=== PATIENT | male | born 1965 | race African-American/Black ===

== ENCOUNTER 2017-10-11 12:46 | Emergency (ER) | payer MEDICARE, MEDICAID ==
[2017-10-11 12:54] VITALS: BP 142/98
[2017-10-11] MEDS ORDERED: DEXAMETHASONE SOD PHOS INJ 10 MG/1 ML VIAL IM ONE (13:02)
--- NOTE | 2017-10-11 13:07 | ER Document Report ---
HPI - HPI Pain Level: 4 Notes: Patient is a 52-year-old male with a history of mental health disorders who presents to the ED complaining of nasal congestion/discharge, postnasal drip, dry nonproductive cough, body aches 2-3 days. Patient states that he is still eating and drinking without difficulties, but does have a decreased p.o. intake. He is still urinating normally having normal bowel movements. Patient has not been using [id number] meds for symptoms. He denies any significant past medical history including cardiopulmonary history and immunocompromised conditions aside from occ asthma otherwise. Patient denies any IV drug use. Denies any headache, neck pain, sore throat, chest pain, palpitations, syncope, shortness of breath, wheeze, dyspnea, abdominal pain, nausea/vomiting/diarrhea, urinary retention, dysuria, hematuria, or rash. - ROS Systems Reviewed and Negative: Yes All other systems reviewed and negative Past Medical History - Social History Smoking Status: Unknown if Ever Smoked Family History: Arthritis, DM, Hyperlipidemia, Hypertension, Thyroid Disfunction - Past Medical History Cardiac Medical History: Reports: Hx Hypercholesterolemia, Hx Hypertension Pulmonary Medical History: Reports: Hx Asthma, Hx Bronchitis Neurological Medical History: Reports: Hx Seizures - childhood GI Medical History: Reports: Hx Gastroesophageal Reflux Disease Musculoskeltal Medical History: Reports Hx Arthritis Psychiatric Medical History: Reports: Hx Anxiety, Hx Attention Deficit Hyperactivity Disorder, Hx Bipolar Disorder, Hx Depression, Hx Schizophrenia Past Surgical History: Reports: Hx Inguinal Hernia - Immunizations Hx Diphtheria, Pertussis, Tetanus Vaccination: No Vertical Provider Document - CONSTITUTIONAL Agree With Documented VS: Yes Notes: PHYSICAL EXAMINATION: GENERAL: Well-appearing, well-nourished and in no acute distress. A&Ox4. Answers questions appropriately. Moves comfortably w/o notable distress HEAD: Atraumatic, normocephalic. EYES: Pupils equal round and reactive to light, extraocular movements intact, sclera anicteric, conjunctiva are normal. ENT: EAC clear b/l. TM's intact b/l without erythema, fluid, or perforation. Nares patent and with clear discharge. oropharynx no erythema without exudates. No tonsilar hypertrophy without erythema or exudate. No palatine shift. Uvula midline. No tongue protrusion. No drooling, hoarseness, or airway compromise. Moist mucous membranes. No sinus tenderness. NECK: Normal range of motion, supple without lymphadenopathy. No rigidity/ meningismus. LUNGS: Breath sounds clear to auscultation bilaterally and equal. No wheezes rales or rhonchi. No retractions HEART: Regular rate and rhythm without murmurs, rubs, gallops. ABDOMEN: Soft, nontender, nondistended abdomen. No guarding, no rebound. Normal bowel sounds present. No CVA tenderness bilaterally. NEUROLOGICAL: Normal speech, normal gait. Normal sensory, motor exams PSYCH: Normal mood, normal affect. SKIN: Warm, Dry, normal turgor, no rashes or lesions noted. - INFECTION CONTROL TRAVEL OUTSIDE OF THE [place] IN LAST 30 DAYS: No Course - Re-evaluation Re-evalutation: 10/11/17 13:05 Patient is an afebrile, well-hydrated, 52-year-old male who presents to the ED with acute URI, suspect viral. Vitals are acceptable. PE is otherwise unremarkable. No labs or imaging warranted at this time based on H&P. Patient has no significant cardiopulmonary or immunocompromised medical conditions aside from occ asthma. Patient's lungs are clear to auscultation bilaterally without tachycardia, hypoxia, or tachypnea. Patient is tolerating p.o. without any difficulties. Thoroughly reviewed the risks, benefits, potential side effects, estimated cost without insurance with patient. Low suspicion for any meningitis, sepsis, peritonsillar/pharyngeal abscess, respiratory compromise, severe dehydration, or other emergent systemic condition at this time. Patient is aware this condition can change from initial presentation and he needs to monitor symptoms closely. Decadron IM today. Rx for tessalon. Conservative measures otherwise for symptoms. Recheck with your PCM in 3-5 days. Return to the ED with any worsening/concerning symptoms otherwise as reviewed in discharge. Patient is in agreement. - Vital Signs Vital signs: Temp Pulse Resp BP Pulse Ox 98.7 F 63 18 142/98 H 98 10/11/17 12:53 10/11/17 12:53 10/11/17 12:53 10/11/17 12:53 10/11/17 12:53 Discharge - Discharge Clinical Impression: Acute URI Condition: Stable Disposition: HOME, SELF-CARE Instructions: Upper Respiratory Illness ([facility]) Additional Instructions: Maintain adequate fluid intake Take meds as directed tylenol/ibuprofen as needed over the counter cold medication as needed for symptoms Humidified air may help Wash your hands regularly Wear a mask when coughing F/u: with your PCM in 3-5 days for a recheck Return to the ED with any fever, worsening pain, chest pain, palpitations, syncope, worsening GRANT, neck pain/stiffness, shortness of breath, wheezing, drooling, trouble swallowing/breathing, abdominal pain, n/v/d, rash, or worsening/concerning symptoms otherwise. Prescriptions: Benzonatate [Tessalon Perle 100 mg Capsule] 100 mg PO Q8HP PRN #15 cap PRN Reason: Albuterol Sulfate [Proair HFA Inhalation Aerosol 8.5 gm MDI] 2 puff IH Q4H PRN # 1 mdi PRN Reason: Forms: Elevated Blood Pressure Referrals: GILMA MILLER MD [Primary Care Provider] - Follow up in 3-5 days
== END 2017-10-11 13:14 | disposition home or self-care (01) ==
LOC: ER 12:46
DX: J06.9 Acute upper respiratory infection, unspecified (principal); R09.81 Nasal congestion; R09.82 Postnasal drip; R05 Cough; R52 Pain, unspecified; J45.909 Unspecified asthma, uncomplicated; I10 Essential (primary) hypertension
CPT/HCPCS: 99283; 96372; J1100

== ENCOUNTER 2017-12-30 16:12 | Emergency (ER) | payer MEDICARE, MEDICAID ==
--- NOTE | 2017-12-30 17:58 | ER Document Report ---
ED Medical Screen (RME) - General Chief Complaint: Chest Pain Stated Complaint: CHEST PAIN, BODY ACHE Time Seen by Provider: 12/30/17 17:56 Notes: Patient says he is having some chest pains this morning. He does not have a history of any heart disease. Patient is located in the center of the chest and slightly to the left of the sternum. It is worsened with movement or deep breaths, but nothing makes it better. Had similar chest pains a couple of months ago and came here and had it checked out and was fine to be discharged home. He has not had any difficulty breathing or shortness of breath. No nausea or vomiting. No fevers. Has a history of hypertension. Is on a blood thinner but does not know what it is. Does take baby aspirin daily. TRAVEL OUTSIDE OF THE [place] IN LAST 30 DAYS: No - Related Data Allergies/Adverse Reactions: No Known Allergies Allergy (Verified 12/30/17 16:16) Past Medical History - Social History Chew tobacco use (# tins/day): No Frequency of alcohol use: None Drug Abuse: None - Past Medical History Cardiac Medical History: Reports: Hx Hypercholesterolemia, Hx Hypertension Pulmonary Medical History: Reports: Hx Asthma, Hx Bronchitis Neurological Medical History: Reports: Hx Seizures - childhood Renal/ Medical History: Denies: Hx Peritoneal Dialysis GI Medical History: Reports: Hx Gastroesophageal Reflux Disease Musculoskeltal Medical History: Reports Hx Arthritis Psychiatric Medical History: Reports: Hx Anxiety, Hx Attention Deficit Hyperactivity Disorder, Hx Bipolar Disorder, Hx Depression, Hx Schizophrenia Past Surgical History: Reports: Hx Inguinal Hernia - Immunizations Hx Diphtheria, Pertussis, Tetanus Vaccination: No Physical Exam - Vital signs Vitals: Temp Pulse Resp BP Pulse Ox 98.0 F 61 20 126/67 H 98 12/30/17 16:28 12/30/17 16:28 12/30/17 16:28 12/30/17 16:28 12/30/17 16:28 Course - Vital Signs Vital signs: Temp Pulse Resp BP Pulse Ox 98.0 F 61 18 126/67 H 98 12/30/17 16:28 12/30/17 16:28 12/30/17 17:46 12/30/17 16:28 12/30/17 16:28 Doctor's Discharge - Discharge Referrals: GILMA MILLER MD [Primary Care Provider] - Follow up as needed
--- NOTE | 2017-12-30 18:40 | EKG REPORT ---
SEVERITY:- NORMAL ECG - SINUS RHYTHM : Confirmed by: Vaibhav Somers MD 30-Dec-2017 18:40:12
--- NOTE | 2017-12-30 18:44 | RADIOLOGY REPORT (SQ) ---
EXAM DESCRIPTION: CHEST 2 VIEWS COMPLETED DATE/TIME: 12/30/2017 6:36 pm REASON FOR STUDY: Chest pain COMPARISON: 06/07/2017 EXAM PARAMETERS: NUMBER OF VIEWS: two views TECHNIQUE: Digital Frontal and Lateral radiographic views of the chest acquired. RADIATION DOSE: NA LIMITATIONS: none FINDINGS: LUNGS AND PLEURA: No opacities, masses or pneumothorax. No pleural effusion. MEDIASTINUM AND HILAR STRUCTURES: No masses or contour abnormalities. HEART AND VASCULAR STRUCTURES: Heart normal size. No evidence for failure. BONES: No acute findings. HARDWARE: None in the chest. OTHER: No other significant finding. IMPRESSION: NO ACUTE RADIOGRAPHIC FINDING IN THE CHEST. TECHNICAL DOCUMENTATION: JOB ID: [id number] [employer]- All Rights Reserved Reading location - IP/workstation name: [email or web address]
[2017-12-30 18:50] LABS: ABSOLUTE EOSINOPHILS # (AUTO) 0.3 10^3/uL (0.0-0.6); ABSOLUTE LYMPHOCYTES (AUTO) 1.2 10^3/uL (0.5-4.7); ABSOLUTE MONOCYTES (AUTO) 0.3 10^3/uL (0.1-1.4); ABSOLUTE NEUT (AUTO) 2.4 10^3/uL (1.7-8.2); BASOPHILS % (AUTO) 0.6 % (0-2); EOSINOPHILS % (AUTO) 7.7 % (0-6); LYMPHOCYTES % (AUTO) 28.1 % (13-45); MEAN CORPUSCULAR HEMOGLOBIN 29.4 pg (27.0-33.4); MEAN CORPUSCULAR HGB CONC 33.3 g/dL (32.0-36.0); MEAN CORPUSCULAR VOLUME 88 fl (80-97); PLATELET COUNT 224 10^3/uL (150-450); RED BLOOD COUNT 4.75 10^6/uL (4.35-5.55); RED CELL DISTRIBUTION WIDTH 13.6 % (11.5-14.0); SEGMENTED NEUTROPHILS % (AUTO) 55.6 % (42-78); TOTAL CELLS COUNTED % (AUTO) 100 %; WHITE BLOOD COUNT 4.3 10^3/uL (4.0-10.5)
[2017-12-30 19:12] LABS: ALANINE AMINOTRANSFERASE 20 U/L (21-72); ALBUMIN 4.3 g/dL (3.5-5.0); ALKALINE PHOSPHATASE 81 U/L (38-126); ANION GAP 9 (5-19); ASPARTATE AMINO TRANSFERASE 21 U/L (17-59); BILIRUBIN,DIRECT 0.2 mg/dL (0.0-0.4); BILIRUBIN,TOTAL 0.6 mg/dL (0.2-1.3); BLOOD UREA NITROGEN 20 mg/dL (7-20); CALCIUM 9.6 mg/dL (8.4-10.2); CARBON DIOXIDE 32 mmol/L (22-30); CHLORIDE 102 mmol/L (98-107); CREATINE KINASE 152 U/L (55-170); GLUCOSE 115 mg/dL (75-110); POTASSIUM 4.1 mmol/L (3.6-5.0); SODIUM 142.5 mmol/L (137-145); TOTAL PROTEIN 7.8 g/dL (6.3-8.2)
[2017-12-30 19:24] LABS: CREATINE KINASE MB 1.33 ng/mL (<4.55)
[2017-12-30 19:27] LABS: TROPONIN I < 0.012 ng/mL
--- NOTE | 2017-12-30 21:42 | ER Document Report ---
ED General - General Chief Complaint: Chest Pain Stated Complaint: CHEST PAIN, BODY ACHE Time Seen by Provider: 12/30/17 17:56 Notes: Patient is a 52-year-old male without chronic medical problems who presents with complaints of intermittent chest pain since waking up this morning. He describes this as an intermittent retrosternal, right-sided chest discomfort that is an aching, stabbing pain. He describes moving and taking a deep breath or palpating the areas worsening the pain. He has not tried anything to improve the pain. He has a history of similar pain in the past that was diagnosed as muscle pain. He denies any shortness of breath, diaphoresis, nausea or vomiting. He denies any cardiac history, history of DVT or pulmonary embolus. He has not seen his primary doctor regarding today's concerns. He states he had a stress test approximately 1-2 years ago that was noted to be normal. He denies any current chest pain, currently asymptomatic TRAVEL OUTSIDE OF THE [place] IN LAST 30 DAYS: No - Related Data Allergies/Adverse Reactions: No Known Allergies Allergy (Verified 12/30/17 16:16) Past Medical History - General Information source: Patient - Social History Smoking Status: Former Smoker Chew tobacco use (# tins/day): No Frequency of alcohol use: None Drug Abuse: None Family History: Arthritis, DM, Hyperlipidemia, Hypertension, Thyroid Disfunction Patient has suicidal ideation: No Patient has homicidal ideation: No - Past Medical History Cardiac Medical History: Reports: Hx Hypercholesterolemia, Hx Hypertension Pulmonary Medical History: Reports: Hx Asthma, Hx Bronchitis Neurological Medical History: Reports: Hx Seizures - childhood Renal/ Medical History: Denies: Hx Peritoneal Dialysis GI Medical History: Reports: Hx Gastroesophageal Reflux Disease Musculoskeletal Medical History: Reports Hx Arthritis Psychiatric Medical History: Reports: Hx Anxiety, Hx Attention Deficit Hyperactivity Disorder, Hx Bipolar Disorder, Hx Depression, Hx Schizophrenia Past Surgical History: Reports: Hx Inguinal Hernia - Immunizations Hx Diphtheria, Pertussis, Tetanus Vaccination: No Review of Systems - Review of Systems Notes: Constitutional: Negative for fever. HENT: Negative for sore throat. Eyes: Negative for visual changes. Cardiovascular: Positive for chest pain. Respiratory: Negative for shortness of breath. Gastrointestinal: Negative for abdominal pain, vomiting or diarrhea. Genitourinary: Negative for dysuria. Musculoskeletal: Negative for back pain. Skin: Negative for rash. Neurological: Negative for headaches, weakness or numbness. 10 point ROS negative except as marked above and in HPI. Physical Exam - Vital signs Vitals: Temp Pulse Resp BP Pulse Ox 98.0 F 61 20 126/67 H 98 12/30/17 16:28 12/30/17 16:28 12/30/17 16:28 12/30/17 16:28 12/30/17 16:28 Interpretation: Normal Notes: PHYSICAL EXAMINATION: GENERAL: Well-appearing, well-nourished and in no acute distress. HEAD: Atraumatic, normocephalic. EYES: Pupils equal round and reactive to light, extraocular movements intact, sclera anicteric, conjunctiva are normal. ENT: nares patent, oropharynx clear without exudates. Moist mucous membranes. NECK: Normal range of motion, supple without lymphadenopathy LUNGS: Breath sounds clear to auscultation bilaterally and equal. No wheezes rales or rhonchi. HEART: Regular rate and rhythm without murmurs ABDOMEN: Soft, nontender, normoactive bowel sounds. No guarding, no rebound. No masses appreciated. EXTREMITIES: Normal range of motion, no pitting or edema. No cyanosis. NEUROLOGICAL: No focal neurological deficits. Moves all extremities spontaneously and on command. PSYCH: Normal mood, normal affect. SKIN: Warm, Dry, normal turgor, no rashes or lesions noted. Course - Re-evaluation Re-evalutation: 12/30/17 21:40 Presentation of chest pain in an otherwise well appearing patient. Low clinical suspicion for ACS given clinical history, exam, EKG without ST elevations or depressions, and negative initial troponin. HEART score less than or equal to 3. PE also seems unlikely given clinical history, absence of tachycardia or dyspnea. Wells score is 0. CXR without evidence of pneumothorax or pneumonia. No widened mediastinum. Aortic dissection also seems unlikely given history, symmetric pulses, CXR, and vitals. A delta troponin remains normal. Patient does have reproduction of pain on palpation of his right and peristernal chest wall and notes that this is where he had the pain previously that he currently denies. Overall assessment: Chest pain in a patient without evidence of cardiac or other serious etiology on workup today. I discussed with patient that, based on their age, risk factors and emergency department testing today, the likelihood that their symptoms are related to a heart attack is very low (estimated risk of heart attack or over the next 30 days of less than 1%). The patient demonstrates decision making capacity and has verbalized an understanding of these risks to me. Based on this, the patient has chosen to follow-up as an outpatient. Usual chest pain return precautions reviewed. The patient states understanding and agreement with this plan. 12/30/17 21:41 - Vital Signs Vital signs: Temp Pulse Resp BP Pulse Ox 97.6 F 61 16 145/91 H 100 12/30/17 22:54 12/30/17 16:28 12/30/17 22:46 12/30/17 22:01 12/30/17 22:46 - Laboratory Result Diagrams: 12/30/17 18:25 12/30/17 18:25 Laboratory results interpreted by me: 12/30/17 12/30/17 18:25 18:25 Eosinophils % 7.7 H Carbon Dioxide 32 H Creatinine 1.42 H Est GFR (Non-Af Amer) 52 L Glucose 115 H ALT 20 L - Diagnostic Test Radiology reviewed: Image reviewed, Reports reviewed Radiology results interpreted by me: 12/30/17 21:41 Chest x-ray: No acute infiltrate or pneumothorax - EKG Interpretation by Me Additional EKG results interpreted by me: 12/30/17 21:41 Sinus rhythm. Rate 70. No ST elevations or depressions. QTC is 419. Discharge - Discharge Clinical Impression: Chest pain Qualifiers: Chest pain type: unspecified Qualified Code(s): R07.9 - Chest pain, unspecified Condition: Good Disposition: HOME, SELF-CARE Additional Instructions: You were seen today for chest pain. The exact cause of your pain is unclear. However, based on your cardiac enzyme testing, chest x-ray, and EKG it does not appear that it is from an immediately life-threatening cause at this time. Although your testing here is normal is critical that you follow-up with your primary care physician for continued evaluation of this chest pain and possible stress testing. I recommended you see your physician within the next 24-48 hours to be evaluated for consideration of a stress test. Please return to emergency department immediately if you have worsening of your chest pain, shortness of breath, vomiting, become unable to exert yourself due to pain or difficulty breathing, you pass out, or have any pain that radiates into your arms, jaw, or back. Please also return if you have any additional symptoms that are concerning to you. Forms: Parent Work Note Referrals: GILMA MILLER MD [Primary Care Provider] - Follow up in 3-5 days
[2017-12-30 22:47] VITALS: BP 145/91
== END 2017-12-30 22:55 | disposition home or self-care (01) ==
LOC: ER 16:12
DX: R07.9 Chest pain, unspecified (principal); I10 Essential (primary) hypertension; J45.909 Unspecified asthma, uncomplicated; Z87.891 Personal history of nicotine dependence
CPT/HCPCS: 36415; 71046; 80053; 82550; 82553; 84484; 85025; 93005; 93010; 99285

== ENCOUNTER 2018-02-03 12:48 | Emergency (ER) | payer MEDICARE, MEDICAID ==
[2018-02-03 12:59] VITALS: BP 138/78
[2018-02-03] MEDS ORDERED: SULFAMETHOXAZOLE/TRIMETHOPRIM 800-160 MG TABLET PO ONE (13:10)
--- NOTE | 2018-02-03 13:10 | ER Document Report ---
ED General - General Mode of Arrival: Ambulatory Information source: Patient TRAVEL OUTSIDE OF THE [place] IN LAST 30 DAYS: No - General Chief Complaint: Lip Swelling Stated Complaint: SWOLLEN LIP Time Seen by Provider: 02/03/18 13:04 Notes: Patient is a 52 year old male presenting to the emergency department complaining of lip swelling onset this morning. Patient states he woke up this morning and noticed the left side of his lip swelling and lip pain. Patient states he believes he was bitten by a spider. Patient denies tongue swelling, difficulty swallowing, trouble breathing or a history of angioedema. Patient is currently on Coumadin. (KRISTY,TAMAYA) - Related Data Allergies/Adverse Reactions: No Known Allergies Allergy (Verified 02/03/18 12:59) Past Medical History - General Information source: Patient - Social History Smoking Status: Current Some Day Smoker Cigarette use (# per day): No - occasional cigar Family History: Arthritis, DM, Hyperlipidemia, Hypertension, Thyroid Disfunction - Past Medical History Cardiac Medical History: Reports: Hx Hypercholesterolemia, Hx Hypertension Pulmonary Medical History: Reports: Hx Asthma, Hx Bronchitis Neurological Medical History: Reports: Hx Seizures - childhood GI Medical History: Reports: Hx Gastroesophageal Reflux Disease Musculoskeletal Medical History: Reports Hx Arthritis Psychiatric Medical History: Reports: Hx Anxiety, Hx Attention Deficit Hyperactivity Disorder, Hx Bipolar Disorder, Hx Depression, Hx Schizophrenia Past Surgical History: Reports: Hx Inguinal Hernia - Immunizations Hx Diphtheria, Pertussis, Tetanus Vaccination: No Review of Systems - Review of Systems Constitutional: No symptoms reported EENT: No symptoms reported Cardiovascular: No symptoms reported Respiratory: No symptoms reported Gastrointestinal: No symptoms reported Genitourinary: No symptoms reported Male Genitourinary: No symptoms reported Musculoskeletal: See HPI Skin: No symptoms reported Hematologic/Lymphatic: No symptoms reported Neurological/Psychological: No symptoms reported -: Yes All other systems reviewed and negative Physical Exam - Vital signs Vitals: Temp Pulse BP Pulse Ox 98.6 F 63 138/78 H 98 02/03/18 12:57 02/03/18 12:57 02/03/18 12:57 02/03/18 12:57 - Notes Notes: GENERAL: Alert, interacts well. No acute distress. HEAD: Normocephalic, atraumatic. EYES: Pupils equal, round, and reactive to light. Extraocular movements intact. ENT: Oral mucosa moist, tongue midline. NECK: Full range of motion. Supple. Trachea midline. LUNGS: No respiratory distress. EXTREMITIES: Moves all 4 extremities spontaneously. No edema, radial and dorsalis pedis pulses 2/4 bilaterally. No cyanosis. NEUROLOGICAL: Alert and oriented x3. Normal speech. PSYCH: Normal affect, normal mood. SKIN: Warm, dry, normal turgor. Swelling to the left side of upper lip with a pustule around a piece of hair, no fluctuance. (KAITLYN WAGNER) - Re-evaluation Re-evalutation: 02/03/18 13:13 Consistent with folliculitis, no evidence of deeper abscess, no evidence of angioedema. Patient will be started on Bactrim and warm compresses and discharged to home. (PATRICK VASQUEZ) - Vital Signs Vital signs: Temp Pulse Resp BP Pulse Ox 98.6 F 63 138/78 H 98 02/03/18 12:57 02/03/18 12:57 02/03/18 12:57 02/03/18 12:57 Discharge - Discharge Clinical Impression: Folliculitis barbae traumatica Condition: Stable Disposition: HOME, SELF-CARE Additional Instructions: Folliculitis You have a skin infection called folliculitis. This occurs when bacteria infect the hair follicles of the skin. Typically, redness and small pustules are found where hair shafts enter the skin. Allergy, surface irritation, shaving, and exposure to hot tubs predispose to folliculitis. We will treat this with an oral antibiotic. It should help to decrease the swelling and cure the infection. The antibiotic that we are using it can sometimes interfere with your blood thinning medication, so please make sure you have your blood thinner level checked within 1 week of starting this medication. Warm compresses are often used. Please clean your razor thoroughly to prevent future infections. If you develop increasing pain, swelling, fever, or red streaks, call the doctor or return for re-evaluation. Prescriptions: Sulfamethoxazole/Trimethoprim [Bactrim Ds Tablet] 1 each PO BID #14 tablet Referrals: GILMA MILLER MD [Primary Care Provider] - Follow up in 1 week Scribe Attestation: 02/03/18 15:04 I personally performed the services described in the documentation, reviewed and edited the documentation which was dictated to the scribe in my presence, and it accurately records my words and actions. (PATRICK VASQUEZ) Scribe Documentation - Scribe Written by Jessica:: Jessica Malone, 02/03/2018 13:31 acting as scribe for :: Lexi
== END 2018-02-03 13:23 | disposition home or self-care (01) ==
LOC: ER 12:48
DX: L73.8 Other specified follicular disorders (principal); R22.0 Localized swelling, mass and lump, head; F17.200 Nicotine dependence, unspecified, uncomplicated; I10 Essential (primary) hypertension; J45.909 Unspecified asthma, uncomplicated
CPT/HCPCS: 99283; A9270

== ENCOUNTER 2018-02-23 11:49 | Emergency (ER) | payer MEDICARE, MEDICAID ==
[2018-02-23 12:13] VITALS: BP 156/100
[2018-02-23] MEDS ORDERED: ACETAMINOPHEN 325 MG TABLET PO ONE (13:05)
--- NOTE | 2018-02-23 14:31 | ER Document Report ---
HPI - HPI Patient complains to provider of: Sore throat Onset: Other - 2 days Onset/Duration: Persistent Quality of pain: Achy Pain Level: 2 Context: She presents complaining of sore throat for the past 2 days. Patient does report sick contacts in the household. Patient denies any fever. Patient denies difficulty swallowing or eating. Associated Symptoms: Sore throat. denies: Body/muscle aches, Nonproductive cough, Productive cough, Earache, Fever Exacerbated by: Denies Relieved by: Denies Similar symptoms previously: Yes Recently seen / treated by doctor: No - ROS ROS below otherwise negative: Yes Systems Reviewed and Negative: Yes All other systems reviewed and negative - CONSTITUTIONAL Constitutional: DENIES: Fever, Chills - EENT EENT: REPORTS: Sore Throat. DENIES: Ear Pain - NEURO Neurology: DENIES: Headache - RESPIRATORY Respiratory: DENIES: Coughing - GASTROINTESTINAL Gastrointestinal: DENIES: Nausea, Patient vomiting - MUSCULOSKELETAL Musculoskeletal: DENIES: Neck Pain - DERM Skin Color: Normal Skin Problems: None Past Medical History - General Information source: Patient - Social History Smoking Status: Never Smoker Chew tobacco use (# tins/day): No Frequency of alcohol use: None Drug Abuse: None Occupation: None Lives with: Family Family History: Arthritis, DM, Hyperlipidemia, Hypertension, Thyroid Disfunction Patient has suicidal ideation: No Patient has homicidal ideation: No - Past Medical History Cardiac Medical History: Reports: Hx Hypercholesterolemia, Hx Hypertension Pulmonary Medical History: Reports: Hx Asthma, Hx Bronchitis Neurological Medical History: Reports: Hx Seizures - childhood Renal/ Medical History: Denies: Hx Peritoneal Dialysis GI Medical History: Reports: Hx Gastroesophageal Reflux Disease Musculoskeletal Medical History: Reports Hx Arthritis Psychiatric Medical History: Reports: Hx Anxiety, Hx Attention Deficit Hyperactivity Disorder, Hx Bipolar Disorder, Hx Depression, Hx Schizophrenia Past Surgical History: Reports: Hx Inguinal Hernia - Immunizations Hx Diphtheria, Pertussis, Tetanus Vaccination: No Vertical Provider Document - CONSTITUTIONAL Agree With Documented VS: Yes Exam Limitations: No Limitations General Appearance: WD/WN, No Apparent Distress - INFECTION CONTROL TRAVEL OUTSIDE OF THE [place] IN LAST 30 DAYS: No - HEENT HEENT: Atraumatic, Normocephalic, Pharyngeal Tenderness, Pharyngeal Erythema. negative: Pharyngeal Exudate, Tympanic Membrane Red, Tympanic Membrane Bulging - NECK Neck: Normal Inspection, Supple. negative: Lymphadenopathy-Left, Lymphadenopathy-Right - RESPIRATORY Respiratory: Breath Sounds Normal, No Respiratory Distress - CARDIOVASCULAR Cardiovascular: Regular Rate, Regular Rhythm, No Murmur - MUSCULOSKELETAL/EXTREMETIES Musculoskeletal/Extremeties: MAEW - NEURO Level of Consciousness: Awake, Alert, Appropriate Motor/Sensory: No Motor Deficit - DERM Integumentary: Warm, Dry, No Rash Course - Re-evaluation Re-evalutation: 02/23/18 14:29 With negative rapid strep test. No concern for [employer]. Patient able to manage oral secretions. No difficulty breathing or swallowing. No potential airway compromise. Throat culture is pending at this time. - Vital Signs Vital signs: Temp Pulse Resp BP Pulse Ox 97.9 F 55 L 18 156/100 H 100 02/23/18 12:12 02/23/18 12:12 02/23/18 12:12 02/23/18 12:12 02/23/18 12:12 - Laboratory Laboratory results interpreted by me: 02/23/18 14:29 Labs- Entire Visit 02/23/18 12:05 Group A Strep Rapid NEGATIVE Discharge - Discharge Clinical Impression: Sore throat Condition: Stable Disposition: HOME, SELF-CARE Instructions: Sore Throat (OM) Additional Instructions: Return immediately for any new or worsening symptoms Followup with your primary care provider, call tomorrow to make a followup appointment Throat culture is pending, we will call if you need any different treatment Prescriptions: Naproxen [Naprosyn 250 Nmg Tablet] 1 tab PO BID #14 tablet Referrals: GILMA MILLER MD [Primary Care Provider] - Follow up tomorrow
== END 2018-02-23 14:36 | disposition home or self-care (01) ==
LOC: ER 11:49
DX: J02.9 Acute pharyngitis, unspecified (principal); I10 Essential (primary) hypertension; J45.909 Unspecified asthma, uncomplicated
CPT/HCPCS: 99283; 87070; 87880; 87077; A9270

== ENCOUNTER 2018-12-01 04:56 | Emergency (ER) | payer MEDICARE, MEDICAID ==
[2018-12-01] MEDS ORDERED: ONDANSETRON 4 MG TAB.RAPDIS PO ONE (05:11)
--- NOTE | 2018-12-01 05:13 | ER Document Report ---
HPI - HPI Time Seen by Provider: 12/01/18 05:02 Pain Level: 3 Context: Patient is a 53-year-old male that comes emergency department for chief complaint of feeling a bug crawl into his right ear. He states he can still feel it move around. He states he has some discomfort but no severe pain. He denies vomiting. He denies drainage or bleeding from the ear. He denies any other complaints. Past Medical History - General Information source: Patient - Social History Smoking Status: Never Smoker Lives with: Family Family History: Arthritis, DM, Hyperlipidemia, Hypertension, Thyroid Disfunction - Past Medical History Cardiac Medical History: Reports: Hx Hypercholesterolemia, Hx Hypertension Pulmonary Medical History: Reports: Hx Asthma, Hx Bronchitis Neurological Medical History: Reports: Hx Seizures - childhood Renal/ Medical History: Denies: Hx Peritoneal Dialysis GI Medical History: Reports: Hx Gastroesophageal Reflux Disease Musculoskeletal Medical History: Reports Hx Arthritis Psychiatric Medical History: Reports: Hx Anxiety, Hx Attention Deficit Hyperactivity Disorder, Hx Bipolar Disorder, Hx Depression, Hx Schizophrenia Past Surgical History: Reports: Hx Inguinal Hernia - Immunizations Hx Diphtheria, Pertussis, Tetanus Vaccination: No Vertical Provider Document - CONSTITUTIONAL General Appearance: WD/WN, Mild Distress - Patient is very agitated, holding his right ear - INFECTION CONTROL TRAVEL OUTSIDE OF THE [place] IN LAST 30 DAYS: No - HEENT HEENT: Atraumatic, Normocephalic. negative: Normal ENT Exam - There is clearly a beetle-like insect in the distal canal of the right ear near the eardrum, no discharge or bleeding, no tenderness over the tragus or mastoid, unremarkable otherwise. Normal ENT exam otherwise including oral pharyngeal exam and nasal exam. - NECK Neck: Normal Inspection - RESPIRATORY Respiratory: Breath Sounds Normal, No Respiratory Distress - CARDIOVASCULAR Cardiovascular: Regular Rate, Regular Rhythm - GI/ABDOMEN Gastrointestinal: Abdomen Soft, Abdomen Non-Tender - BACK Back: Normal Inspection - MUSCULOSKELETAL/EXTREMETIES Musculoskeletal/Extremeties: MAEW, FROM, Non-Tender - NEURO Level of Consciousness: Awake, Alert, Appropriate Motor/Sensory: No Motor Deficit, No Sensory Deficit - DERM Integumentary: Warm, Dry, No Rash Course - Re-evaluation Re-evalutation: In order to kill the insect I placed a capful of isopropyl alcohol in the right ear, fortunately the living beetle insect immediately crawled out of the ear canal and was caught and squished between gauze. Ear was drained, reexamined, shows no concerning findings. Patient states gratefulness. Blood pressure is elevated, patient is due for his blood pressure medication, no complaints otherwise. - Vital Signs Vital signs: Temp Pulse Resp BP Pulse Ox 98.3 F 72 18 12/01/18 05:03 12/01/18 05:03 12/01/18 05:03 Discharge - Discharge Clinical Impression: Foreign body in ear Qualifiers: Encounter type: initial encounter Laterality: right Qualified Code(s): T16.1XXA - Foreign body in right ear, initial encounter Condition: Stable Disposition: HOME, SELF-CARE Additional Instructions: The insect was removed and there is no concerning finding noted on the physical exam of your ear now. Follow-up with primary care. Return for any concerning symptoms or something is not right. Referrals: GILMA MILLER MD [Primary Care Provider] - Follow up as needed
[2018-12-01 05:30] VITALS: BP 174/105
== END 2018-12-01 05:27 | disposition home or self-care (01) ==
LOC: ER 04:56
DX: T16.1XXA Foreign body in right ear, initial encounter (principal); H92.01 Otalgia, right ear; I10 Essential (primary) hypertension; J45.909 Unspecified asthma, uncomplicated
CPT/HCPCS: 99283; A9270; S0119

== ENCOUNTER 2018-12-28 14:40 | Emergency (ER) | payer MEDICARE, MEDICAID ==
[2018-12-28] MEDS ORDERED: DIPH/PERTUSS(ACELL)/TETANUS VAC/PF 0.5 ML SYR (>=10YO) IM ONE (15:17)
[2018-12-28] MEDS ORDERED: ACETAMINOPHEN 325 MG TABLET PO ONE (15:17)
--- NOTE | 2018-12-28 15:18 | ER Document Report ---
ED Medical Screen (RME) - General Chief Complaint: Laceration Stated Complaint: RIGHT FINGER PAIN Time Seen by Provider: 12/28/18 15:14 Primary Care Provider: GILMA MILLER MD [Primary Care Provider] - Follow up as needed Mode of Arrival: Ambulatory Information source: Patient Notes: 53-year-old male presented to ED for injury to his right index finger. He stat es he was working on the car took the wheels off was put in the back on when he smashed his finger in the wheel. He states his tetanus is not up-to-date and he would like some Tylenol is not had anything since he injured his finger. Medical history is asthma blood pressure cholesterol migraines IBS he has had a colonoscopy and a right inguinal hernia repair. He states he does not drink smoke or use any drugs does not work and lives alone. Patient is alert oriented respirations regular and unlabored speaking in full sentences walks with even steady gait. I have greeted and performed a rapid initial assessment of this patient. A comprehensive ED assessment and evaluation of the patient, analysis of test results and completion of medical decision making process will be conducted by an additional ED providers. TRAVEL OUTSIDE OF THE [place] IN LAST 30 DAYS: No - Related Data Allergies/Adverse Reactions: No Known Allergies Allergy (Verified 12/28/18 14:42) Past Medical History - Past Medical History Cardiac Medical History: Reports: Hx Hypercholesterolemia, Hx Hypertension Pulmonary Medical History: Reports: Hx Asthma, Hx Bronchitis Neurological Medical History: Reports: Hx Seizures - childhood Renal/ Medical History: Denies: Hx Peritoneal Dialysis GI Medical History: Reports: Hx Gastroesophageal Reflux Disease Musculoskeltal Medical History: Reports Hx Arthritis Psychiatric Medical History: Reports: Hx Anxiety, Hx Attention Deficit Hyperactivity Disorder, Hx Bipolar Disorder, Hx Depression, Hx Schizophrenia Past Surgical History: Reports: Hx Inguinal Hernia - Immunizations Hx Diphtheria, Pertussis, Tetanus Vaccination: No Physical Exam - Vital signs Vitals: Temp Pulse Resp BP Pulse Ox 98.3 F 61 15 176/94 H 98 12/28/18 14:48 12/28/18 14:48 12/28/18 14:48 12/28/18 14:48 12/28/18 14:48 Course - Vital Signs Vital signs: Temp Pulse Resp BP Pulse Ox 98.3 F 61 15 176/94 H 98 12/28/18 14:48 12/28/18 14:48 12/28/18 14:48 12/28/18 14:48 12/28/18 14:48 Doctor's Discharge - Discharge Referrals: GILMA MILLER MD [Primary Care Provider] - Follow up as needed
--- NOTE | 2018-12-28 15:46 | RADIOLOGY REPORT (SQ) ---
EXAM DESCRIPTION: FINGER RIGHT COMPLETED DATE/TIME: 12/28/2018 3:35 pm REASON FOR STUDY: smashed indexfinger COMPARISON: None. NUMBER OF VIEWS: Three views. TECHNIQUE: AP, lateral, and oblique images acquired of the right second finger. LIMITATIONS: None. FINDINGS: MINERALIZATION: Normal. BONES: No acute fracture or dislocation. No worrisome bone lesions. SOFT TISSUES: No soft tissue swelling. No foreign body. OTHER: No other significant finding. IMPRESSION: NO RADIOGRAPHIC EVIDENCE OF ACUTE INJURY. COMMENT: SITE OF TRAUMA/COMPLAINT MARKED/STAMP COMPLETED: YES. TECHNICAL DOCUMENTATION: JOB ID: [id number] [employer]- All Rights Reserved Reading location - IP/workstation name: [email or web address]
[2018-12-28] MEDS ORDERED: BUPIVACAINE HCL 0.75% INJ/PF (7.5 MG/1 ML) 10 ML SDV INJ ONE (16:28)
[2018-12-28] MEDS ORDERED: LIDOCAINE 1% INJ (10 MG/ML) 10 ML MDV INJ ONE (16:28)
--- NOTE | 2018-12-28 17:49 | ER Document Report ---
ED General - General Mode of Arrival: Ambulatory TRAVEL OUTSIDE OF THE [place] IN LAST 30 DAYS: No - General Chief Complaint: Laceration Stated Complaint: RIGHT FINGER PAIN Time Seen by Provider: 12/28/18 15:14 Primary Care Provider: GILMA MILLER MD [Primary Care Provider] - Follow up as needed Notes: 53-year-old [id number] male with history of asthma presents emergency department with an injury to his right index finger sustained yesterday at 8:30 PM when it got caught in a wheel well. Patient states that he smashed his finger and then wrapped it up but decided to seek care today. Patient states that he is able to move his finger and he is in significant pain. Patient's tetanus is not up-to-date. Patient states that it was still mildly bleeding today. Patient denies any other injury to his hand. (SON KOCH) - Related Data Allergies/Adverse Reactions: No Known Allergies Allergy (Verified 12/28/18 14:42) Past Medical History - General Information source: Patient - Social History Smoking Status: Never Smoker Frequency of alcohol use: None Drug Abuse: None Family History: Arthritis, DM, Hyperlipidemia, Hypertension, Thyroid Disfunction Patient has suicidal ideation: No Patient has homicidal ideation: No - Past Medical History Cardiac Medical History: Reports: Hx Hypercholesterolemia, Hx Hypertension Pulmonary Medical History: Reports: Hx Asthma, Hx Bronchitis Neurological Medical History: Reports: Hx Seizures - childhood Renal/ Medical History: Denies: Hx Peritoneal Dialysis GI Medical History: Reports: Hx Gastroesophageal Reflux Disease Musculoskeletal Medical History: Reports Hx Arthritis Psychiatric Medical History: Reports: Hx Anxiety, Hx Attention Deficit Hyperactivity Disorder, Hx Bipolar Disorder, Hx Depression, Hx Schizophrenia Past Surgical History: Reports: Hx Inguinal Hernia - Immunizations Hx Diphtheria, Pertussis, Tetanus Vaccination: No Review of Systems - Review of Systems Constitutional: See HPI EENT: No symptoms reported Cardiovascular: No symptoms reported Respiratory: No symptoms reported Gastrointestinal: No symptoms reported Genitourinary: No symptoms reported Male Genitourinary: No symptoms reported Musculoskeletal: See HPI Skin: See HPI Hematologic/Lymphatic: No symptoms reported Neurological/Psychological: No symptoms reported Physical Exam - Vital signs Vitals: Temp Pulse Resp BP Pulse Ox 98.3 F 61 15 176/94 H 98 12/28/18 14:48 12/28/18 14:48 12/28/18 14:48 12/28/18 14:48 12/28/18 14:48 - Notes Notes: PHYSICAL EXAMINATION: Reviewed vital signs and charting by RN GENERAL: Alert, interacts well. No acute distress. HEAD: Normocephalic, atraumatic. EYES: Pupils equal and round. Extraocular movements intact. ENT: Oral mucosa moist, tongue midline. NECK: Full range of motion. Trachea midline. EXTREMITIES: Moves all 4 extremities spontaneously. No edema, No cyanosis. PSYCH: Normal affect, normal mood. SKIN: Warm, dry, normal turgor. Right index finger with a large laceration that extends from the lateral aspect all the way around the palmar side to the nail, there appears to be evidence of a nailbed injury underneath the nail which is cracked, no active bleeding, no exposed bone (SON KOCH) Course - Re-evaluation Re-evalutation: 12/28/18 17:49 Patient is 20 hours post injury and will have to heal via secondary intention. I explored the wound with Dr. radha de la rosa and plan is to Steri-Strip it and splinted after irrigation. I explained the plan to patient and he understands and is stable for discharge. Patient's active range of motion intact with flexion and extension, normal strength to resistance of the flexor and extensor ligaments with a normal distal neurovascular exam. 12/28/18 17:51 (SON KOCH) 12/28/18 19:45 I did personally seen and examined this patient in conjunction with Son Koch PA-C. Patient had a crush injury to the second digit of his right hand. It does reveal a skin flap to the distal aspect of the 2nd digit on the palmar aspect and a crack in the nailbed as well. There is no evidence of bony injury and no evidence of ligamentous injury either. This will need to heal by secondary intent. There will be one Steri-Strip placed to help it stay together fairly well and it will be splinted. Patient will be started on antibiotics as well. (PATRICK VASQUEZ) - Vital Signs Vital signs: Temp Pulse Resp BP Pulse Ox 97.5 F 71 20 143/94 H 100 12/28/18 18:41 12/28/18 18:41 12/28/18 18:41 12/28/18 18:41 12/28/18 18:41 Discharge - Discharge Clinical Impression: Injury of right index finger Qualifiers: Encounter type: initial encounter Qualified Code(s): S69.91XA - Unspecified injury of right wrist, hand and finger(s), initial encounter Condition: Good Disposition: HOME, SELF-CARE Additional Instructions: You were seen in the emergency department for a right index finger injury. Because the injury occurred last night we cannot close it with stitches and will have to heal by a process called secondary intention. We have placed a Steri- Strip to approximate the wound and have placed you in a splint. It is important to keep your finger in a splint. We have also given you some non-stick Telfa pads that you can change twice a day. Please do not put any Vaseline or petroleum-based products on your finger while the Steri-Strips in place. You can wash it with soap and water twice a day. Pat it dry. If he starts to develop fever, if your finger starts to get red or purulent discharge comes from it or you have any other concerns please immediately return to the emergency department. Referrals: GILMA MILLER MD [Primary Care Provider] - Follow up as needed
[2018-12-28 18:42] VITALS: BP 143/94
== END 2018-12-28 18:42 | disposition home or self-care (01) ==
LOC: ER 14:40
DX: S61.310A Laceration without foreign body of right index finger with damage to nail, initial encounter (principal); W23.0XXA Caught, crushed, jammed, or pinched between moving objects, initial encounter; Y93.89 Activity, other specified; I10 Essential (primary) hypertension; J45.909 Unspecified asthma, uncomplicated
CPT/HCPCS: 99283; 90471; 73140; 90715; A9270

== ENCOUNTER 2019-01-24 12:27 | Emergency (ER) | payer MEDICARE, MEDICAID ==
[2019-01-24 12:46] VITALS: BP 163/89
--- NOTE | 2019-01-24 12:59 | ER Document Report ---
HPI - HPI Patient complains to provider of: Finger recheck Time Seen by Provider: 01/24/19 12:47 Onset: Other - December 28, 2018 Quality of pain: No pain Severity: None Context: 53-year-old male presents emergency department for recheck of his left index finger. On December 28 he got his left index finger caught in a wheel while he was changing a tire and had the skin ripped off. He reports they were unable to do sutures they put Steri-Strips. He reports he has been wearing a finger splint since that time. Denies fever swelling discharge from the finger. Reports he is here because it still does not look right. Associated Symptoms: None Exacerbated by: Denies Relieved by: Denies Similar symptoms previously: Yes Recently seen / treated by doctor: Yes Past Medical History - General Information source: Patient - Social History Smoking Status: Unknown if Ever Smoked Cigarette use (# per day): No Frequency of alcohol use: None Drug Abuse: None Lives with: Family Family History: Arthritis, DM, Hyperlipidemia, Hypertension, Thyroid Disfunction - Past Medical History Cardiac Medical History: Reports: Hx Hypercholesterolemia, Hx Hypertension Pulmonary Medical History: Reports: Hx Asthma, Hx Bronchitis Neurological Medical History: Reports: Hx Seizures - childhood Renal/ Medical History: Denies: Hx Peritoneal Dialysis GI Medical History: Reports: Hx Gastroesophageal Reflux Disease Musculoskeletal Medical History: Reports Hx Arthritis Psychiatric Medical History: Reports: Hx Anxiety, Hx Attention Deficit Hyperactivity Disorder, Hx Bipolar Disorder, Hx Depression, Hx Schizophrenia Past Surgical History: Reports: Hx Inguinal Hernia - Immunizations Hx Diphtheria, Pertussis, Tetanus Vaccination: No Vertical Provider Document - CONSTITUTIONAL Agree With Documented VS: Yes Exam Limitations: No Limitations General Appearance: WD/WN, No Apparent Distress - INFECTION CONTROL TRAVEL OUTSIDE OF THE [place] IN LAST 30 DAYS: No - HEENT HEENT: Atraumatic, Normocephalic - NECK Neck: Supple - RESPIRATORY Respiratory: No Respiratory Distress - CARDIOVASCULAR Cardiovascular: Regular Rate - MUSCULOSKELETAL/EXTREMETIES Musculoskeletal/Extremeties: MAEW, FROM, Non-Tender - No erythema no pustule no warmth no swelling to the left index finger. + Cap refill noted to the very tip of his finger. - NEURO Level of Consciousness: Awake, Alert, Appropriate Motor/Sensory: No Motor Deficit - DERM Integumentary: Warm, Dry Course - Re-evaluation Re-evalutation: 01/24/19 13:03 53-year-old male returns to the emergency department for finger recheck. Reports he got the skin ripped off of it when he was changing a tire on December 28. His finger wound is healing. The fingernail is discolored. He reports he did have black under the fingernail and now the fingernail is turning pale yellow-green hue but does not look infected no pain on palpation. No pustule no drainage no warmth no induration.. Patient was instructed on signs and symptoms of infection. He was instructed to monitor his finger return here immediately for any signs of infection he verbalized understanding to all instructions. Dictation of this chart was performed using voice recognition software; therefore, there may be some unintended grammatical errors. - Vital Signs Vital signs: Temp Pulse Resp BP Pulse Ox 97.9 F 61 18 163/89 H 97 01/24/19 12:44 01/24/19 12:44 01/24/19 12:44 01/24/19 12:44 01/24/19 12:44 Discharge - Discharge Clinical Impression: finger recheck Condition: Stable Disposition: HOME, SELF-CARE Additional Instructions: *You have been evaluated for finger recheck *Monitor your finger for signs of infection such as increasing pain,redness, s welling, warmth *Keep the finger clean Take Tylenol or Motrin as indicated for pain *Follow up with a primary care provider within 1 week for recheck *Return to ED for signs of infection, worsening condition, concerns, changes, needs Monitor your blood pressure. Your blood pressure was elevated today. This may be because you were anxious, in pain or because you need medication. It is important to follow up with your primary care provider for full evaluation. Forms: Elevated Blood Pressure Referrals: GILMA MILLER MD [Primary Care Provider] - Follow up in 1 week
== END 2019-01-24 13:10 | disposition home or self-care (01) ==
LOC: ER 12:27
DX: S61.301D Unspecified open wound of left index finger with damage to nail, subsequent encounter (principal); W23.0XXD Caught, crushed, jammed, or pinched between moving objects, subsequent encounter; I10 Essential (primary) hypertension; J45.909 Unspecified asthma, uncomplicated

== ENCOUNTER → 2019-12-19 | Outpatient (CLI) | payer MEDICARE, MEDICAID ==
--- NOTE | 2019-12-19 13:23 | RADIOLOGY REPORT (SQ) ---
EXAM DESCRIPTION: CT SOFT TISSUE NECK WITH IMAGES COMPLETED DATE/TIME: 12/19/2019 1:10 pm REASON FOR STUDY: R22.1 LOCALIZED SWELLING, MASS AND LUMP, NECK R22.1 LOCALIZED SWELLING, MASS AND LUMP, NECK COMPARISON: None. TECHNIQUE: Post IV contrasted scanning from skull base through lung apices with review of bone, soft tissue and lung windows. Reconstructed coronal and sagittal MPR images reviewed. All images stored on PACS. All CT scanners at this facility use dose modulation, iterative reconstruction, and/or weight based d osing when appropriate to reduce radiation dose to as low as reasonably achievable (ALARA). [facility]: Dose Right [facility]: CareDose [facility]: Dose Right [facility]: Teradose 4D [facility]: TradingView CONTRAST TYPE AND DOSE: contrast/concentration: Isovue 350.00 mmol/ml; Total Contrast Delivered: 75. 0 ml; Total Saline Delivered: 33.0 ml RENAL FUNCTION: Creatinine 1.4. RADIATION DOSE: CT Rad equipment meets quality standard of care and radiation dose reduction techniq ues were employed. CTDIvol: 18.5 mGy. DLP: 592 mGy-cm. . LIMITATIONS: None. FINDINGS: SKULL BASE: Intact. MAJOR SALIVARY GLANDS: No solid or cystic masses. No inflammatory changes. LYMPHADENOPATHY: No adenopathy. MUCOSAL MASSES OR ASYMMETRY: No mucosal masses or asymmetry. LARYNX/CORDS: No abnormal findings. VASCULAR STRUCTURES: The major vessels are patent. Right-sided aortic arch. LUNG APICES: Clear. BONES: Intact. THYROID: Normal size. No masses. PARANASAL SINUSES: Clear. OTHER: No other significant finding. IMPRESSION: NO SIGNIFICANT FINDING IN THE SOFT TISSUES OF THE NECK. TECHNICAL DOCUMENTATION: JOB ID: [id number] Quality ID # [id number]: Final reports with documentation of one or more dose reduction techniques (e.g., Au tomated exposure control, adjustment of the mA and/or kV according to patient size, use of iterative reconstruction technique) 2010 [employer]- All Rights Reserved Reading location - IP/workstation name: [email or web address]
== END ==
LOC: RAD 12:45
PROVIDERS: ATTEND Internal Medicine
DX: R22.1 Localized swelling, mass and lump, neck (principal)
CPT/HCPCS: 70491; 82565

== ENCOUNTER 2020-02-02 11:51 | Emergency (ER) | payer MEDICARE, MEDICAID ==
--- NOTE | 2020-02-02 12:32 | ER Document Report ---
ED Medical Screen (RME) - General Chief Complaint: Chest Pain Stated Complaint: CHEST PAIN Time Seen by Provider: 02/02/20 12:26 Primary Care Provider: CLAUDIA EDDY MD [Primary Care Provider] - Follow up as needed Mode of Arrival: Ambulatory Information source: Patient Notes: 54-year-old male presented to ED for complaint of chest pain x4 days. He states when he drinks something cold makes the pain worse and becomes very short of breath. He states he has had where it felt like he could not breathe and felt like his throat was swollen a couple days ago. He states he has had intermittent fevers and sweating yesterday. He does have a history of asthma COPD bronchitis. He has had a colonoscopy he states the reason he has COPD as he is a former smoker but no longer smokes drink she denies any illicit drugs. Patient is alert oriented respirations regular nonlabored at this time. I have greeted and performed a rapid initial assessment of this patient. A comprehensive ED assessment and evaluation of the patient, analysis of test results and completion of medical decision making process will be conducted by an additional ED providers. TRAVEL OUTSIDE OF THE [place] IN LAST 30 DAYS: No - Related Data Allergies/Adverse Reactions: No Known Allergies Allergy (Verified 12/28/18 14:42) Past Medical History - Social History Frequency of alcohol use: None Drug Abuse: None - Past Medical History Cardiac Medical History: Reports: Hx Hypercholesterolemia, Hx Hypertension Pulmonary Medical History: Reports: Hx Asthma, Hx Bronchitis Neurological Medical History: Reports: Hx Seizures - childhood Renal/ Medical History: Denies: Hx Peritoneal Dialysis GI Medical History: Reports: Hx Gastroesophageal Reflux Disease Musculoskeltal Medical History: Reports Hx Arthritis Psychiatric Medical History: Reports: Hx Anxiety, Hx Attention Deficit Hyperactivity Disorder, Hx Bipolar Disorder, Hx Depression, Hx Schizophrenia Past Surgical History: Reports: Hx Inguinal Hernia - Immunizations Hx Diphtheria, Pertussis, Tetanus Vaccination: No Physical Exam - Vital signs Vitals: Temp Pulse Resp BP Pulse Ox 98.5 F 59 L 18 133/88 H 97 02/02/20 12:04 02/02/20 12:04 02/02/20 12:04 02/02/20 12:04 02/02/20 12:04 Course - Vital Signs Vital signs: Temp Pulse Resp BP Pulse Ox 98.5 F 59 L 18 133/88 H 97 02/02/20 12:04 02/02/20 12:04 02/02/20 12:04 02/02/20 12:04 02/02/20 12:04 Doctor's Discharge - Discharge Referrals: CLAUDIA EDDY MD [Primary Care Provider] - Follow up as needed
[2020-02-02 13:45] LABS: ABSOLUTE EOSINOPHILS # (AUTO) 0.4 10^3/uL (0.0-0.6); ABSOLUTE LYMPHOCYTES (AUTO) 1.2 10^3/uL (0.5-4.7); ABSOLUTE MONOCYTES (AUTO) 0.3 10^3/uL (0.1-1.4); ABSOLUTE NEUT (AUTO) 2.2 10^3/uL (1.7-8.2); BASOPHILS % (AUTO) 0.9 % (0-2); EOSINOPHILS % (AUTO) 8.7 % (0-6); HEMOGLOBIN 14.9 g/dL (13.5-17.0); LYMPHOCYTES % (AUTO) 28.1 % (13-45); MEAN CORPUSCULAR HEMOGLOBIN 30.7 pg (27.0-33.4); MEAN CORPUSCULAR HGB CONC 35.5 g/dL (32.0-36.0); MEAN CORPUSCULAR VOLUME 87 fl (80-97); MONOCYTES % (AUTO) 8.3 % (3-13); PLATELET COUNT 215 10^3/uL (150-450); RED BLOOD COUNT 4.85 10^6/uL (4.35-5.55); RED CELL DISTRIBUTION WIDTH 13.7 % (11.5-14.0); TOTAL CELLS COUNTED % (AUTO) 100 %; WHITE BLOOD COUNT 4.1 10^3/uL (4.0-10.5)
[2020-02-02 14:07] LABS: ALBUMIN 4.5 g/dL (3.5-5.0); ALKALINE PHOSPHATASE 81 U/L (38-126); ANION GAP 9 (5-19); ASPARTATE AMINO TRANSFERASE 20 U/L (17-59); BILIRUBIN,DIRECT 0.2 mg/dL (0.0-0.4); BILIRUBIN,TOTAL 0.6 mg/dL (0.2-1.3); BLOOD UREA NITROGEN 15 mg/dL (7-20); CALCIUM 10.1 mg/dL (8.4-10.2); CARBON DIOXIDE 29 mmol/L (22-30); CHLORIDE 102 mmol/L (98-107); GLUCOSE 94 mg/dL (75-110); POTASSIUM 3.8 mmol/L (3.6-5.0); TOTAL PROTEIN 7.6 g/dL (6.3-8.2)
[2020-02-02 14:10] LABS: A TYPE INFLUENZA AG NEGATIVE (NEGATIVE); B INFLUENZA AG NEGATIVE (NEGATIVE)
--- NOTE | 2020-02-02 14:40 | RADIOLOGY REPORT (SQ) ---
EXAM DESCRIPTION: CHEST SINGLE VIEW IMAGES COMPLETED DATE/TIME: 02/02/2020 2:13 pm REASON FOR STUDY: chest pain short of breath COMPARISON: CT soft tissue neck 12/19/2019 Two-view chest 06/07/2015 EXAM PARAMETERS: NUMBER OF VIEWS: One view. TECHNIQUE: Single frontal radiographic view of the chest acquired. RADIATION DOSE: NA LIMITATIONS: None. FINDINGS: LUNGS AND PLEURA: No opacities, masses or pneumothorax. No pleural effusion. MEDIASTINUM AND HILAR STRUCTURES: No masses. Contour normal. HEART AND VASCULAR STRUCTURES: No cardiomegaly. There is a right-sided aortic arch BONES: No acute findings. HARDWARE: None in the chest. OTHER: No other significant finding. IMPRESSION: Right-sided aortic arch. Otherwise unremarkable study TECHNICAL DOCUMENTATION: JOB ID: [id number] [employer]- All Rights Reserved Reading location - IP/workstation name: [email or web address]
--- NOTE | 2020-02-02 15:09 | ER Document Report ---
ED General - General Chief Complaint: Chest Pain Stated Complaint: CHEST PAIN Time Seen by Provider: 02/02/20 12:26 Primary Care Provider: CLAUDIA EDDY MD [Primary Care Provider] - Follow up as needed Mode of Arrival: Ambulatory Notes: Patient is a 54-year-old -[place] male with a history of COPD who is a current everyday smoker who presents the emergency department the chief complaint of right-sided chest pain for the past 4 days. He states the pain is sharp in nature, located to the right anterior chest. States it only occurs when drinking something cold. Denies any worsening shortness of breath. No chest pain at rest. No fever, nausea vomiting, diarrhea, chills, night sweats, abdominal pain, lower extremity pain or swelling, history of DVT or PE, recent surgery, recent travel or recent immobilization. No hormone replacement therapies. No history of cancer. Patient denies any family history of cardiovascular disease. TRAVEL OUTSIDE OF THE [place] IN LAST 30 DAYS: No - Related Data Allergies/Adverse Reactions: No Known Allergies Allergy (Verified 12/28/18 14:42) Past Medical History - General Information source: Patient - Social History Smoking Status: Current Every Day Smoker Frequency of alcohol use: None Drug Abuse: None Family History: Arthritis, DM, Hyperlipidemia, Hypertension, Thyroid Disfunction - Past Medical History Cardiac Medical History: Reports: Hx Hypercholesterolemia, Hx Hypertension Pulmonary Medical History: Reports: Hx Asthma, Hx Bronchitis Neurological Medical History: Reports: Hx Seizures - childhood Renal/ Medical History: Denies: Hx Peritoneal Dialysis GI Medical History: Reports: Hx Gastroesophageal Reflux Disease Musculoskeletal Medical History: Reports Hx Arthritis Psychiatric Medical History: Reports: Hx Anxiety, Hx Attention Deficit Hyperactivity Disorder, Hx Bipolar Disorder, Hx Depression, Hx Schizophrenia Past Surgical History: Reports: Hx Inguinal Hernia - Immunizations Hx Diphtheria, Pertussis, Tetanus Vaccination: No Review of Systems - Review of Systems Constitutional: denies: Fever EENT: denies: Nose pain Cardiovascular: denies: Syncope Respiratory: denies: Cough Gastrointestinal: denies: Poor appetite Genitourinary: denies: Incontinence Male Genitourinary: denies: Testicular pain Musculoskeletal: denies: Neck pain Skin: denies: Lesions Hematologic/Lymphatic: denies: Easy bruising Neurological/Psychological: denies: Weakness Physical Exam - Vital signs Vitals: Temp Pulse Resp BP Pulse Ox 98.5 F 59 L 18 133/88 H 97 02/02/20 12:04 02/02/20 12:04 02/02/20 12:04 02/02/20 12:04 02/02/20 12:04 - General General appearance: Appears well, Alert In distress: None - HEENT Head: Normocephalic, Atraumatic Eyes: Normal Conjunctiva: Normal Extraocular movements intact: Yes Eyelashes: Normal Pupils: PERRL Ears: Normal External canal: Normal Tympanic membrane: Normal Sinus: Normal Nasal: Normal Mouth/Lips: Normal Mucous membranes: Normal Pharynx: Normal Neck: Normal - Respiratory Respiratory status: No respiratory distress Chest status: Nontender Breath sounds: Normal Chest palpation: Normal - Cardiovascular Rhythm: Regular Heart sounds: Normal auscultation Murmur: No - Abdominal Inspection: Normal Distension: No distension Bowel sounds: Normal Tenderness: Nontender Organomegaly: No organomegaly - Extremities General upper extremity: Normal inspection, Nontender, Normal color, Normal ROM, Normal temperature General lower extremity: Normal inspection, Nontender, Normal color, Normal ROM, Normal temperature, Normal weight bearing. No: Clovis's sign - Neurological Neuro grossly intact: Yes Cognition: Normal Orientation: AAOx4 - Psychological Associated symptoms: Normal affect, Normal mood - Skin Skin Temperature: Warm Skin Moisture: Dry Skin Color: Normal Course - Re-evaluation Re-evalutation: 02/02/20 15:07 EKG: Sinus rhythm at 55 bpm. Normal axis. Normal intervals. No STEMI. Similar to previous EKG from prior visit. Interpreted by myself in conjunction with ED attending. 02/02/20 17:13 Chest x-ray showing a right aortic arch, confirmed on CT of the chest. CT the chest showing an aberrant left subclavian and the right aortic arch otherwise no acute process per radiologist. Work-up is largely unremarkable. He is pending COVID-19 testing. No evidence of cardiac involvement. Discussed with the patient the importance of outpatient follow-up with his doctor. He will call Dr. Eddy first thing Wednesday morning for further outpatient follow-up and management. He will remain in quarantine at home as discussed until a negative COVID-19 result is achieved. Advised to return here or any ER immediately with any new, persistent or worsening symptoms. He verbalized understood and agreed. - Vital Signs Vital signs: Temp Pulse Resp BP Pulse Ox 98.5 F 59 L 15 156/75 H 99 02/02/20 12:04 02/02/20 12:04 02/02/20 17:00 02/02/20 15:02 02/02/20 17:00 - Laboratory Result Diagrams: 02/02/20 13:15 02/02/20 13:15 Laboratory results interpreted by me: 02/02/20 02/02/20 13:15 13:15 Eos % (Auto) 8.7 H Creatinine 1.30 H Est GFR (MDRD) Non-Af 58 L Discharge - Discharge Clinical Impression: Person under investigation for COVID-19 Chest pain Qualifiers: Chest pain type: unspecified Qualified Code(s): R07.9 - Chest pain, unspecified Condition: Stable Disposition: HOME, SELF-CARE Instructions: Chest Pain of Unclear Cause ([facility]), COVID-19 Guidance for Persons Under Investigation Additional Instructions: Your COVID-19 test is in progress. Please remain isolated and quarantine in your home until you are contacted with a negative result. If positive please quarantine for at least 10 days or until you are 24 hours symptom-free. Please follow-up with Dr. Eddy as discussed. Please return here or any ER immediately with any new, persistent or worsening symptoms. Referrals: CLAUDIA EDDY MD [Primary Care Provider] - Follow up as needed
--- NOTE | 2020-02-02 16:18 | RADIOLOGY REPORT (SQ) ---
EXAM DESCRIPTION: CTA CHEST IMAGES COMPLETED DATE/TIME: 02/02/2020 3:55 pm REASON FOR STUDY: cp COMPARISON: CT soft tissue neck 12/19/2019 TECHNIQUE: CT scan of the chest performed using helical scanning technique with dynamic intravenous contrast injection. Images reviewed with lung, soft tissue and bone windows. Reconstructed coronal and sagittal MPR images reviewed. Additional 3 dimensional post-processing performed to develop Maximal Intensity Projection images (ND P). All images stored on PACS. All CT scanners at this facility use dose modulation, iterative reconstruction, and/or weight based d osing when appropriate to reduce radiation dose to as low as reasonably achievable (ALARA). [facility]: Dose Right [facility]: CareDose [facility]: Dose Right [facility]: Teradose 4D [facility]: [employer] CONTRAST TYPE AND DOSE: contrast/concentration: Isovue 350.00 mmol/ml; Total Contrast Delivered: 61. 0 ml; Total Saline Delivered: 80.0 ml Contrast bolus adequate for pulmonary arteries and aorta. RENAL FUNCTION: Creatinine 1.3 RADIATION DOSE: CT Rad equipment meets quality standard of care and radiation dose reduction techniq ues were employed. CTDIvol: 15.2 - 19.8 mGy. DLP: 589 mGy-cm. . LIMITATIONS: None. FINDINGS: LUNGS AND PLEURA: No masses, infiltrates, or pneumothorax. No pleural effusions or pleura l calcifications. AORTA AND GREAT VESSELS: There is a right-sided aortic arch and aberrant left subclavian artery with vascular ring along the upper 3rd of the esophagus. No thoracic aortic dissection. No thoracic aort ic aneurysm HEART: No pericardial effusion. No significant coronary artery calcifications. PULMONARY ARTERIES: No emboli visualized in the main pulmonary arteries or the segmental branches. HILAR AND MEDIASTINAL STRUCTURES: No identified masses or abnormal nodes. HARDWARE: None in the chest. UPPER ABDOMEN: No significant findings. Limited exam. THYROID AND OTHER SOFT TISSUES: Thyroid unremarkable. Mild bilateral gynecomastia BONES: No acute or significant finding. 3D MIPS: Confirm above findings. OTHER: No other significant finding. IMPRESSION: No acute findings. No acute pulmonary emboli or thoracic aortic dissection Right-sided aortic arch with aberrant left subclavian artery COMMENT: Quality ID # [id number]: Final reports with documentation of one or more dose reduction techniques (e.g., Automated exposure control, adjustment of the mA and/or kV according to patient size, use of iterative reconstruction technique) TECHNICAL DOCUMENTATION: JOB ID: [id number] 2010 [employer]- All Rights Reserved Reading location - IP/workstation name: [email or web address]
[2020-02-02 17:24] VITALS: BP 160/106
--- NOTE | 2020-02-03 00:53 | EKG REPORT ---
SEVERITY:- NORMAL ECG - SINUS RHYTHM : Confirmed by: Mayela Dorantes MD 03-Feb-2020 00:52:34
--- NOTE | 2020-02-03 00:54 | EKG REPORT ---
SEVERITY:- ABNORMAL ECG - BORDERLINE T WAVE ABNORMALITIES SINUS BRADYCARDIA.BASELINE ATRIFACT : Confirmed by: Mayela Dorantes MD 03-Feb-2020 00:53:31
== END 2020-02-02 17:24 | disposition home or self-care (01) ==
LOC: ER 11:51
DX: R07.9 Chest pain, unspecified (principal); Z20.828 Contact with and (suspected) exposure to other viral communicable diseases; F17.200 Nicotine dependence, unspecified, uncomplicated; J44.9 Chronic obstructive pulmonary disease, unspecified; E78.00 Pure hypercholesterolemia, unspecified; I10 Essential (primary) hypertension
CPT/HCPCS: 93005; 99285; 36415; 87070; 87880; 83735; 85025; 80053; 84484; 87804; 71045; 71275; 93010; U0003; C9803; 87635

== ENCOUNTER → 2020-05-09 | Outpatient (CLI) | payer MEDICARE, MEDICAID ==
--- NOTE | 2020-05-09 13:51 | RADIOLOGY REPORT (SQ) ---
EXAM DESCRIPTION: CT SOFT TISSUE NECK WITH IMAGES COMPLETED DATE/TIME: 05/09/2020 12:58 pm REASON FOR STUDY: (R22.1)LOCALIZED SWELLING, MASS AND LUMP, NECK R22.1 LOCALIZED SWELLING, MASS AND LUMP, NECK COMPARISON: 12/19/2019 TECHNIQUE: Post IV contrasted scanning from skull base through lung apices with review of bone, soft tissue and lung windows. Reconstructed coronal and sagittal MPR images reviewed. All images stored on PACS. All CT scanners at this facility use dose modulation, iterative reconstruction, and/or weight based d osing when appropriate to reduce radiation dose to as low as reasonably achievable (ALARA). [facility]: Dose Right [facility]: CareDose [facility]: Dose Right [facility]: Teradose 4D [facility]: [employer] CONTRAST TYPE AND DOSE: contrast/concentration: Isovue 350.00 mmol/ml; Total Contrast Delivered: 75. 0 ml; Total Saline Delivered: 55.0 ml RENAL FUNCTION: Creatinine 1.5. RADIATION DOSE: . LIMITATIONS: None. FINDINGS: SKULL BASE: Intact. MAJOR SALIVARY GLANDS: No solid or cystic masses. No inflammatory changes. LYMPHADENOPATHY: No adenopathy. MUCOSAL MASSES OR ASYMMETRY: No mucosal masses or asymmetry. LARYNX/CORDS: No abnormal findings. VASCULAR STRUCTURES: The major vessels are patent. LUNG APICES: Clear. BONES: Intact. THYROID: Normal size. No masses. PARANASAL SINUSES: Clear. OTHER: No other significant finding. IMPRESSION: NO SIGNIFICANT FINDING IN THE SOFT TISSUES OF THE NECK. TECHNICAL DOCUMENTATION: JOB ID: [id number] Quality ID # [id number]: Final reports with documentation of one or more dose reduction techniques (e.g., Au tomated exposure control, adjustment of the mA and/or kV according to patient size, use of iterative reconstruction technique) 2010 [employer]- All Rights Reserved Reading location - IP/workstation name: [email or web address]
== END ==
LOC: RAD 12:27
PROVIDERS: ATTEND Internal Medicine
DX: R22.1 Localized swelling, mass and lump, neck (principal)
CPT/HCPCS: 70491; 82565